=== PATIENT | female | born 1950 | race Caucasian/White ===

== ENCOUNTER 2024-12-28 22:28 | Emergency (ER) | payer MEDICARE ==
[~2024-12-28] VITALS: Ht 172.7 cm; Wt 82.0 kg
--- NOTE | 2024-12-28 22:38 | Physician Documentation ---
History of Present Illness ~ Stated Complaint: FALL Time Seen by MD: 22:32 HPI This is a pleasant 74-year-old female who presents for evaluation of potential injuries sustained in a mechanical ground level fall that was a result of alcohol consumption. She tripped up, fell. Struck her face/head and left shoulder. Complains of left shoulder pain. Denies any other symptoms. Denies loss of consciousness. Denies blood thinners. Denies any chest pain or difficulty breathing, denies abdominal pain. Medication Reconciliation Allergies: Uncoded Allergies: NKDA (Allergy, Unknown, 12/28/24) Review of Systems ROS 10 point review of systems was performed and unless noted above in HPI is negative for acute process/complaint. Physical Exam Physical Exam GENERAL: Awake, alert, oriented, GCS 15, no apparent distress, non-toxic appearing, answers questions, follows commands appropriately. Examined immediately upon arrival in the EMS gurney HEENT: Superficial abrasion to the left face just lateral to the White, no active bleeding, normocephalic, pupils equal, extraocular muscles intact, sclerae anicteric, mucus membranes moist, oropharynx is clear, no stridor. NECK: supple, full active range of motion, trachea midline, no thyromegaly, no lymphadenopathy, no JVD. CARDIOVASCULAR: regular rate/rhythm, no murmurs/gallops/rubs, Pulses are 2+ in all extremities and symmetric. Capillary refill less than 2 seconds. PULMONARY: Nonlabored, good air movement ,no respiratory distress, speaking in full sentences, clear to auscultation bilaterally, no wheezing, no ronchi, no rales, no accessory muscle use. GASTROINTESTINAL: Soft, non-tender, non-distended, normal active bowel sounds, no organomegaly, no pulsatile masses, no CVA tenderness. NEUROLOGIC: Lucid with normal mental status. Normal facial symmetry. Moves all extremities symmetrically and with purpose. No truncal ataxia. Speech is fluid without evidence of dysarthria or aphasia, no focal deficits appreciated. MUSCULOSKELETAL: There is full range of motion of all extremities. There is no joint pain or joint swelling or joint erythema. There is no muscle pain or tenderness or swelling. EXTREMITIES: warm, well-perfused, no cyanosis, no clubbing, no edema, no acute deformities. Skin: warm, dry, no rashes or lesions, no jaundice, no petechiae orpurpura. No ecchymosis. PSYCHIATRIC: Normal affect, normal insight, normal concentration. Focused exam: [Left shoulder is tender to palpation over humeral head and range of motion is limited by pain, neurovascularly intact distally.] This is concerning for proximal humerus fracture Progress Results/Orders Results/Orders Orders - SRINIVASAN DE LA ROSA DO Chest,Single View (12/28/24 ) Shoulder, Complete (Min 2 Vws) (12/28/24 22:32) Ct Head (12/28/24 22:20) Ct Cervical Spine (12/28/24 22:20) Completed Orders - SRINIVASAN DE LA ROSA DO Chest,Single View (12/28/24 ) Shoulder, Complete (Min 2 Vws) (12/28/24 22:32) Ct Head (12/28/24 22:20) Ct Cervical Spine (12/28/24 22:20) Vital Signs 12/28/24 22:42 Pulse 61 Resp 20 B/P (MAP) 108/66 Pulse Ox 99 Medical Decision Making Findings Facility Status: ED Holds, RME process The plan was discussed with the patient, who demonstrates clear understanding of the plan and is in agreement with the plan unless otherwise noted in the chart. All questions have been answered, all concerns were addressed unless otherwise documented. I was available throughout their ED stay for frequent reassessment and questions. Differential Diagnoses (considered and possible or likely): [Ground level fall, acute traumatic pain, closed head injury, concussion, subdural, subarachnoid, cervical spine fracture or subluxation, left shoulder contusio n/fracture/dislocation] ??Differential Diagnoses (considered and unlikely, not requiring evaluation currently): [Unlikely chest or abdominal injury] MDM Data Please see [facility] for the following: Independent Historians and external Records Review. Historian: [Patient] Independent Historians: ?[EMS] Medication Management: [Reviewed medication list] Social History and determinants: [Reviewed] Please see the body of the note for the following: Any independent interpretations of ECG, imaging studies. All vitals signs/haemodynamics, ordered tests were independently reviewed and interpreted by myself. Nursing triage complaint and vitals reviewed, additional nursing notes were reviewed as available and I agree unless otherwise noted or documented in contradiction in the chart Vital Signs: Independently reviewed Labs: Independently interpreted Imaging: Independently interpreted Old Medical Records: Independently reviewed, see HPI for relevant summary and information Pulse Oximetry: [98%] interpreted as [normal on room air] by me [Lawn Care Technician: [Regular Rate, Regular rhythm, no ectopy, NSR] reviewed and interpreted by me] Additionally notably showing: [Hemodynamically stable. CT head and neck is unremarkable for bleed or fracture. X-ray of the shoulder shows comminuted fracture of proximal humerus.] Tests considered but not ordered include: [Hematologic workup has been considered but does not appear to be necessary given mechanical nature of the injury.] Social Determinants of Health Impact: Patient was evaluated in [facility] [place] to healthcare due to below par ratio of patient to medical providers. [] Comorbid Conditions Impacting Present Evaluation and Care/Treatment: [Alcohol use disorder] Management Discussions with other Healthcare Providers: [None] Treatment and Disposition Medication Management (Given or considered): [Pain management has been considerably state of alcohol intoxication I would be leery of giving her narcotic medications at this time]. See EMR for details Consideration for Hospitalization/Escalation/Deescalation of Care: Admission for observation has been considered, [however the patient is able to tolerate p.o., their symptoms are controlled, they are able to rely on oral medications, and their chief complaint/diagnosis can be managed on outpatient basis.] ?ED Course:?[No clinical deterioration] ?Shared decision making:?[Patient is hemodynamically stable for discharge home with follow with their primary care provider. [ ] Specific and cautious return precautions provided and discussed with full understanding. Any incidental findings were also discussed and follow up recommendations given. [] All q uestions answered. Patient/family were able to verbalize back return precautions. Patient/family agree to plan. Copies of imaging and laboratory studies were provided.] Code status:?FULL Please see the full Electronic Medical Record for full details of nursing documentation, medications list, other records of complete past medical history and conditions, vital signs, laboratory studies, and any radiologic study interpretations by radiologists. Portions of this note were completed using J[employer] dictation software and as a result there may exist minor errors in spelling. I have reviewed elements of past family and social history and agree as included in note. Departure Disposition: HOME / SELF CARE / HOMELESS Impression: Primary Impression: Ground-level fall Additional Impressions: Acute traumatic pain Closed head injury Left shoulder pain Fracture of humerus, left, closed Condition: Improved Discharge Instructions: Humerus Fracture Treated With Immobilization Referrals: DILMA ROSAS Jr., MD 3-4 days Please follow-up with the orthopedic surgeon for a humerus fracture Education Educated: Patient Educated regarding: diagnosis, treatment, prognosis, need for follow up Signature Scribe Signature: No scribe Attestation: This note accurately reflects clinical decisions, work performed by myself, DO RJ Castillo NICHOLAS M DO December 28, 2024 22:38
--- NOTE | 2024-12-28 23:12 | RADIOLOGY REPORT ---
Clinical History fall, pain Comparison None Technique: Two radiographs were submitted for review. Without Contrast MELVIN ABDI, [id number] FINDINGS: Acute comminuted fracture of the Left humeral head/neck. There is associated soft tissue swelling. No radiopaque foreign body identified. IMPRESSION: Acute comminuted fracture of the Left humeral head/neck. Soft tissue swelling. This report was electronically signed by Jelani Nieves MD on 12/28/2024 11:09 PM.
--- NOTE | 2024-12-28 23:12 | RADIOLOGY REPORT ---
CHEST RADIOGRAPH Indication: fall, pain Technique: Single frontal view of the chest was obtained COMPARISON: None FINDINGS: Lines and Tubes: None Lungs: Clear Pleura: No effusion. No pneumothorax. Cardiomediastinal contours: Unremarkable IMPRESSION: No abnormality demonstrated.
--- NOTE | 2024-12-28 23:24 | RADIOLOGY REPORT ---
Clinical History fall with head strike, pain Comparison None Technique: Contiguous axial CT images of the head without intravenous contrast administration. Coron al and sagittal reformation was performed. All CT scans at this medical facility are performed using dose modulation techniques as appropriate t o a performed exam including the following: Automated exposure control was utilized; adjustment of th e mA and/or kV according to patient size; and use of iterative reconstruction technique. All CT studies are reported to the Dose Index Registry of the [employer]. Without Contrast Radiation Dose: CTDI (mGy): 61.52; DLP (mGy-cm): 1129.72 SEMAJMELVIN SILVERMAN, [id number] Findings: Multiple patchy to confluent hypoattenuated foci are in bilateral periventricular, deep, and subcorti lauren white matter. The remaining brain parenchyma shows otherwise normal fitzpatrick-white matter differenti ation without any mass, bleed, edema, or herniation. The sulci, cisterns, and ventricles are intact. No extra-axial fluid collection or skull lesion is present. The imaged portions of the paranasal sinuses and mastoid air cells are clear. Both orbits are grossl y normal. Impression: 1. No acute intracranial abnormality. 2. Bilateral white matter lesions probably represent chronic small vessel ischemic changes. This report was electronically signed by Calos Gayle MD on 12/28/2024 11:21:59 PM.
--- NOTE | 2024-12-28 23:26 | RADIOLOGY REPORT ---
Clinical History fall with head strike, pain Comparison None Technique: Contiguous axial CT images of the cervical spine without intravenous contrast administrati on. Coronal and sagittal reformation was performed. All CT scans at this medical facility are performed using dose modulation techniques as appropriate t o a performed exam including the following: Automated exposure control was utilized; adjustment of th e mA and/or kV according to patient size; and use of iterative reconstruction technique. All CT studies are reported to the Dose Index Registry of the [employer]. Without Contrast Radiation Dose: CTDI (mGy): 22.85; DLP (mGy-cm): 481.72 MELVIN ABDI, [id number] Findings: The cervical vertebrae show normal contour, height, and alignment. No fracture, dislocation, paraver tebral soft tissue mass, or bony destructive lesion is present. C2-C3: The disc space shows mild narrowing. The spinal canal is patent. Both neural foramina are pa tent. C3-C4: The disc space shows normal height. The spinal canal is patent. Both neural foramina are pat ent. C4-C5: The disc space shows normal height. The spinal canal is patent. The right neural foramen is patent. The left neural foramen is minimally narrowed. C5-C6: The disc space shows moderate narrowing. The spinal canal is patent. The right neural forame n is moderately narrow. The left neural foramen is patent. C6-C7: The disc space shows moderate narrowing. The spinal canal is patent. Both neural foramina ar e patent. C7-T1: The disc space shows mild narrowing. The spinal canal is patent. Both neural foramina are mi nimally narrowed. Impression: 1. No acute bony abnormality. 2. Cervical spine degenerative changes. This report was electronically signed by Calos Gayle MD on 12/28/2024 11:24:16 PM.
[2024-12-29] MEDS ORDERED: HYDR-3965 PO (00:45)
[2024-12-29 00:53] VITALS: BP 111/59; PULSE 66; RESP 18; TEMP 97.4; O2SAT 100
== END 2024-12-29 00:33 | disposition home or self-care (01) ==
LOC: ER 22:28
DX: S42.212A Unspecified displaced fracture of surgical neck of left humerus, initial encounter for closed fracture (principal); S09.90XA Unspecified injury of head, initial encounter; W01.0XXA Fall on same level from slipping, tripping and stumbling without subsequent striking against object, initial encounter; Y93.89 Activity, other specified; Y92.89 Other specified places as the place of occurrence of the external cause; Y99.8 Other external cause status
CPT/HCPCS: 70450; 71045; 72125; 73030; 99284; A4565

== ENCOUNTER 2025-01-04 16:17 | Emergency (ER) | payer MEDICARE ==
[~2025-01-04] VITALS: Ht 180.3 cm; Wt 92.6 kg
[~2025-01-04 16:17] MED LIST: HYDR-3965 PO
[2025-01-04 16:47] VITALS: BP 134/83; PULSE 99; O2SAT 95
[2025-01-04] MEDS ORDERED: IBUP-1985 PO (17:48)
--- NOTE | 2025-01-04 17:49 | Physician Documentation ---
History of Present Illness ~ Chief Complaint: See Chief Complaint Stated Complaint: RECHECK Time Seen by MD: 17:30 HPI 74-year-old female status post ground level fall left humerus fracture has an appointment with [facility] Dr. Elizondo in Wednesday. Patient is concerned that it has been almost a week and if it is okay for her to wait to see the orthopedist as well as potentially better pain management prior to seen orthopedics. Patient is having to sleep in her chair due to the immobility of her left upper extremity. Family member at bedside Tetanus within 5 years: Yes Medication Reconciliation Allergies: Uncoded Allergies: NKDA (Allergy, Unknown, 12/28/24) Scheduled PRN Hydrocodone Bit/Acetaminophen 5/325 MG (Tyler 5/325 MG), 1 TAB PO Q6H PRN for pain Physical Exam Vital Signs: Temperature: 98.2, Heart Rate: 99, Respiratory Rate: 17, BP: 134/83, Pulse Oximetry: 95, Weight: 92.600 Oxygen Flow Rate: 0 Progress Results/Orders Results/Orders Vital Signs 01/04/25 16:47 Temp 98.2 Pulse 99 Resp 17 B/P (MAP) 134/83 Pulse Ox 95 O2 Flow Rate 0 Departure Time of Disposition: 17:45 Disposition: 01 HOME / SELF CARE / HOMELESS Impression: Primary Impression: Fracture of humerus, left, closed Condition: Stable Discharge Instructions: Managing Pain Without Opioids Referrals: NO PRIMARY CARE PROVIDER (PCP) Prescriptions Ibuprofen (Ibuprofen) 600 Mg Tablet 1 TAB PO Q8H for pain for 10 Days, #30 TAB 0 Refills with food Prov: DEANNE AUSTIN NP 01/04/25 Education Educated: Patient, Family Educated regarding: diagnosis, treatment, need for follow up Additional Comment Maintain follow-up with orthopedics on Wednesday. DEANNE AUSTIN NP January 04, 2025 17:49
[2025-01-04 18:18] VITALS: RESP 16
[2025-01-04] MEDS: HYDROcodone/acetaminophen 5mg/325mg tablet PO ONE (18:18)
[2025-01-04 18:21] VITALS: TEMP 98.2
== END 2025-01-04 18:25 | disposition home or self-care (01) ==
LOC: ER 16:17
DX: S42.302A Unspecified fracture of shaft of humerus, left arm, initial encounter for closed fracture (principal); W19.XXXA Unspecified fall, initial encounter; Y93.89 Activity, other specified; Y92.89 Other specified places as the place of occurrence of the external cause; Y99.8 Other external cause status
CPT/HCPCS: 99283

== ENCOUNTER 2025-01-24 14:21 | Outpatient (CLI) | payer MEDICARE ==
[~2025-01-24 14:21] MED LIST changes: +IBUP-1985 PO
--- NOTE | 2025-01-24 15:52 | RADIOLOGY REPORT ---
EXAM: CT CT UPPER EXTREMITIES INDICATION: PAIN IN LEFT UPPER ARM TECHNIQUE: Axial images of left shoulder have been obtained along with coronal and sagittal reformatt ed images. All CT scans at this facility use dose modulation, iterative reconstruction, and/or weight based dosing when appropriate to reduce radiation dose to as low as reasonably achievable. COMPARISON: None FINDINGS: BONES: Significant comminuted, 1 shaft width medially displaced left proximal humeral diaphyseal frac ture. Additional fracture plane extending through the anatomic neck and humeral head. Fracture exte nsion into the greater tuberosity. No fracture extension into the lesser tuberosity. Multiple small b utterfly fragments. Subacute to chronic fractures of the left lateral 3rd, 4th ribs with possible mor e acute fracture of the left lateral 5th rib MUSCLES: No abnormal attenuation. JOINT SPACES: No joint effusion. TENDONS/LIGAMENTS: Intact. OTHER: Moderate to severe left centrilobular emphysema. Coronary artery calcifications. Prominence of the main pulmonary artery, which may indicate pulmonary hypertension. IMPRESSION: 1. Significant comminuted, 1 shaft width medially displaced left proximal humeral diaphyseal fracture .
== END 2025-01-24 23:59 | disposition home or self-care (01) ==
LOC: RAD 14:21
PROVIDERS: ATTEND Specialist
DX: S42.292A Other displaced fracture of upper end of left humerus, initial encounter for closed fracture (principal); M79.622 Pain in left upper arm; J43.2 Centrilobular emphysema; M97.32XA Periprosthetic fracture around internal prosthetic left shoulder joint, initial encounter; I27.20 Pulmonary hypertension, unspecified; I25.10 Atherosclerotic heart disease of native coronary artery without angina pectoris; X58.XXXA Exposure to other specified factors, initial encounter; Y93.89 Activity, other specified; Y92.89 Other specified places as the place of occurrence of the external cause; Y99.9 Unspecified external cause status; Y99.8 Other external cause status
CPT/HCPCS: 73200; 76377

== ENCOUNTER 2025-03-02 10:42 | Observation (INO) | payer MEDICARE ==
[2025-02-26 15:19] LABS: MEAN PLATELET VOLUME 8.7 FL (7.4-10.4); PRE OP HEMATOCRIT 45.9 % (35.0-45.0); PRE OP HEMOGLOBIN 15.8 g/dL (12.0-16.0); PRE OP PLATELET COUNT 146 X10'3 (140-440); PRE OP WHITE BLOOD COUNT 6.2 10'3 (4.8-10.8); RED CELL DISTRIBUTION WIDTH 17.9 % (11.5-14.5)
[2025-02-26 15:20] LABS: LEUKOCYTE ESTERASE ,URINE SMALL (Neg); NITRITES, URINE POSITIVE (Neg); OCCULT BLOOD,URINE TRACE-INTACT (Neg)
[2025-02-26 15:22] LABS: UA COLLECTION TYPE CLN CATCH MIDSTREAM
[2025-02-26 15:25] LABS: SQUAMOUS EPITHELIAL CELL,UR MODERATE /LPF (FEW)
[2025-02-26 15:27] LABS: WBC CLUMPS,URINE FEW /HPF (NEGATIVE)
[2025-02-26 15:36] LABS: CREATININE 0.89 MG/DL (0.40-0.90); PRE OP ALT 28 U/L (30-65); PRE OP ANION GAP 7 (8-16); PRE OP AST 23 U/L (10-37); PRE OP BILIRUB, TOTAL 0.6 MG/DL (0.0-1.0); PRE OP GLUCOSE 145 MG/DL (70-104); PRE OP POTASSIUM 4.6 MMOL/L (3.4-5.1); PRE OP SODIUM 138 MMOL/L (135-145); TOTAL CARBON DIOXIDE 29.4 MMOL/L (24-32); eGFR 62 ML/MIN
--- NOTE | 2025-02-26 15:46 | RADIOLOGY REPORT ---
DI CHEST,TWO VIEWS CLINICAL HISTORY: PREOP COMPARISON: None TECHNIQUE: Frontal and lateral view of the chest was obtained FINDINGS: Lines and Tubes: None Lungs: Right medial lower lung zone opacity. There is Image rotation into the left. Pleura: No effusion. No pneumothorax. Cardiomediastinal contours: Unremarkable Bones: Mild loss of vertebral body height of the lower thoracic spine upper lung chronicity. IMPRESSION: Right medial lower lung zone opacity which may represent pneumonia/ atelectasis. Recommend clinical c orrelation
[~2025-03-02] VITALS: Ht 180.3 cm; Wt 91.0 kg
[2025-03-02] VITALS (20 sets, daily range): BP systolic 98–152; BP diastolic 58–108; PULSE 63–99; RESP 12–22; TEMP 97.2–98.6; O2SAT 76–100
[2025-03-02] MEDS: ceFAZolin 2gm/dext,iso 50mL 50 ML IV ONE (05:30)
[~2025-03-02 10:42] MED LIST changes: +ALBU18HF2 INH; +ASCO-134 PO; +BUDE10.7 INH; -HYDR-3965 PO; +MULT-1085 PO; +OXYM15SP NAS
[2025-03-02] MEDS ORDERED: vancomycin 1,000mg inj ONE (10:51)
[2025-03-02] MEDS: ringers solution, lacted 1,000 ML IV SCH ×2 (12:00→13:00)
[2025-03-02] MEDS ORDERED: cloNIDine hcl/PF 100mcg/ml inj ONE (12:36)
[2025-03-02] MEDS ORDERED: fentaNYL/PF 50MCG/1 ML 2ML syringe ONE ×2 (12:37→13:48)
[2025-03-02] MEDS ORDERED: midazolam 1 mg/ML 2ml injection ONE (12:38)
[2025-03-02] MEDS ORDERED: propofol inj 20 ML IV ONE (12:39)
[2025-03-02] MEDS ORDERED: ROPIVAcaine 0.5% (5mg/ml) 30ml vial ONE (12:41)
[2025-03-02] MEDS ORDERED: dexamethasone sod phosphate 4mg/ml inj. ONE (12:41)
[2025-03-02] MEDS ORDERED: acetaminophen 1,000mg/100ml IV 100 ML IV PRN (13:00)
[2025-03-02] MEDS ORDERED: PCA WASTE DOCUMENTATION 1 MG ML MC SCH (13:00)
[2025-03-02] MEDS ORDERED: morphine 4 MG/ML inj SYRINge IV PRN (13:00)
[2025-03-02] MEDS ORDERED: labetalol 20mg/4ml (5mg/ml) syringe IV PRN (13:00)
[2025-03-02] MEDS ORDERED: hydrALAZINE 20mg/ml inj. IV PRN (13:00)
[2025-03-02] MEDS ORDERED: bisacodyl 10mg suppository rectal RC PRN (13:00)
[2025-03-02] MEDS ORDERED: HYDROmorphone/PF 0.2 MG/ML SYRINGE IV PRN ×2 (13:00)
[2025-03-02] MEDS ORDERED: magnesium hydroxide 30ml (MOM) UD suspension PO PRN (13:00)
[2025-03-02] MEDS ORDERED: ondansetron/PF 4mg/2ml inj IV PRN ×2 (13:00)
[2025-03-02] MEDS ORDERED: HYDROcodone/acetaminophen 5mg/325mg tablet PO PRN ×2 (13:00)
[2025-03-02] MEDS ORDERED: rocuronium 10mg/ml inj IV ONE (13:09)
[2025-03-02] MEDS ORDERED: albuterol 2.5 MG/3 ML nebule NEB PRN (13:25)
[2025-03-02] MEDS ORDERED: tranexamic acid 100mg/ml inj. ONE (13:48)
--- NOTE | 2025-03-02 19:43 | OPERATIVE REPORT ---
Operative Report Providers to ~ Date of Procedure: Mar 02, 2025 Pre-Operative Diagnosis: L proximal humerus fracture Post-Operative Diagnosis SAME as PRE-Op Procedure Performed Left shoulder hemiarthroplasty for proximal humerus fracture and biceps tenodesis Surgeon: Bryce Hummel MD Ancient Art Curator None Anesthesiologist: Adarsh Price Type of Anesthesia: General, Regional Findings: Significant osteoporosis of the left proximal humerus. Soft bone of the humeral head.. Comminution of the metadiaphysis. No early healing callus noted. Estefania re osteoporosis/osteopenia of the glenoid that resulted in implant failure of the reverse shoulder base plate. This resulted in the need to change to a hemiarthroplasty due to weak glenoid bone. Complications Failure of the glenoid component intraoperatively Prosthetics\Implants used: Biomet comprehensive size 10 stem with a 46 diameter humeral head Estimated Blood Loss: 250 cc Specimen Removed: None Description of Procedure: Patient is brought to the operating. Placed in a supine position. Preoperative antibiotics of 2 g of Ancef were given. 1 g of TXA. General plus regional anesthesia was performed. Patient was then positioned in a modified beach chair position. Bony prominences were well padded. Bilateral lower extremity SCDs were placed. The left upper extremity was prepped and draped in the usual sterile fashion. A time-out procedure was performed as per routine identifying the patient, site to be operated on, and procedure to be performed. I confirmed that we are operating on the left side. Patient received 2 g of Ancef. 1 g of TXA. A left shoulder interscalene block had been performed. I began with the left shoulder deltopectoral extended incision. Cephalic vein was identified and taken laterally with the deltoid. I developed the deltopectoral interval and subdeltoid space. There was scar tissue within the subdeltoid space given the subacute nature of the fracture. I developed the subacromial space and a retractor was placed. I could palpate the lateral aspect of the proximal fracture and a retractor was placed directly on bone there. I could identify the pectoralis major insertion and found the long head of the biceps. The long head of the biceps had significant tenosynovitis so I tenodesed it to the upper portion of the pectoralis major and resected the proximal portion of the biceps all the way up to the rotator interval. I spent some time dissecting out the metadiaphyseal portion of the fracture which showed significant comminution without sign of healing. I also was able to dissect out the shaft of the humerus which was displaced medially and posteriorly to the proximal humeral segment. There was no comminution of the humeral shaft portion so I dissected the upper portion. I had to release a small portion of the upper part of the pectoralis major. There was tendinous tissue within the shaft of the humerus on the distal side. This may have been portions of the latissimus or teres major but I had to debride the tendon out of the humeral shaft. I then turned my attention to the proximal segment. I carefully dissected around the proximal humerus. There was extensive comminution. Again minimal healing. I tried to mobilize the humeral head towards the shaft but the comminution started to displace. Also, given the timing, the amount of shortening was substantial and any effort to try and gain length caused the fracture fragments to displaced more. I also used this opportunity to palpate from within the humeral canal the bone quality of the humeral head and it was very poor. Very soft bone. At this point, I had to make a decision whether to proceed with attempted open reduction internal fixation in this patient or consider converting her to a reverse shoulder replacement. Given her age, overall health, bone quality, smoking history, etc., I felt it might be better to do a reverse shoulder arthroplasty because I think healing of the fracture would be very limited in this patient. Patient was aware of this especially given timing of the surgery. Therefore, at this point I decided to convert to a reverse shoulder replacement. I used an osteotome to essentially cleaved off the lesser tuberosity. I then used the same osteotome to go within the fracture site and mobilize the greater tuberosity which essentially came apart by itself. I used an oscillating saw to remove the remaining portion of the humeral head as there was still a reasonable amount of metaphyseal bone. Humeral head was placed on the back table. It roughly size close to a size 46. I then placed traction sutures around the lesser tuberosity osteotomy as well as around the large fracture fragment of the greater tuberosity. With these sutures in place, I could use them for retraction. This allowed me access to the glenoid. Also, there was a large medial calcar piece which came off of the humeral head. I took a #5 FiberWire suture and a subperiosteal fashion, I passed the #5 FiberWire around the medial calcar to try and use it as a cerclage suture at a later point. The traction sutures around the tuberosities were 1.3 mm SutureTape. I did use a combination of reamers as well as curettes to clear out the humeral canal. So at this point, I was ready to try and place a glenosphere component for the reverse shoulder replacement. Visualization of the glenoid was easy because there was no proximal humerus. Careful dissection allowed removal of residual biceps and labrum. I easily dissected directly on bone and placed retractors on bone to have excellent visualization of the glenoid. Care was taken inferiorly to protect the axillary nerve and anteriorly to protect neurovascular structures. I had good visualization. I then cleared off any residual cartilage from the glenoid. I decided I would use a 5 degree augmented base plate to tip of the glenoid down slightly. I positioned my base plate guide for the shoulder innovations implant and placed a bicortical guide pin. Fluoroscopy was taken and I was happy with the guide pin position. I then reamed the glenoid face to accommodate the 5 degree augment. Definitive 5 degree augment was open and I placed the maximum correction superiorly just like my reaming. I then impacted the base plate. Upon impaction, it was noted that the glenoid face did not hold and the subchondral bone failed especially inferiorly. The base plate settled a little deep into the pocket. I did notice this. It did not have very good Press-Fit. I decided to try and placed my center compression screw to see if this added stability. I placed a bicortical center compression screw and it actually had fairly good purchase. I decided to continue with the surgery to see what would happen and if I could achieve stability of the base plate. I placed four peripheral locking screws. The base plate seemed to be very stable. Even with twisting of the final screw tightening, the base plate seemed to turn the scapula as a unit. I then decided to place a 36 diameter glenosphere. A 36, plus three glenosphere was opened. I then impacted the Lakhani taper of the glenosphere to seat the glenosphere. I then gave a twist to the glenosphere to see if the taper was engaged. While the taper was engaged, I could clearly see the entire glenosphere twist. This to me indicated that the base plate was not secure. I removed the glenosphere. I checked the base plate and it was grossly loose. I could see it rotate several mm with a twisting force. I backed out all of my screws and I could essentially pull out the base plate with minimal effort. Inspection of the bone under the base plate showed obvious subchondral bone failure. At this point, it was clear that a reverse shoulder arthroplasty could not be performed because I would not have any solid bone purchase of the glenoid base plate and glenosphere. I decided I would have to convert to a hemiarthroplasty. I took bone from the humeral head. I impacted it into the glenoid bone to try an act as a bone filler given the collapse of the subchondral plate. At this point, we decided to try and proceed with a hemiarthroplasty I decided to use the Biomet comprehensive stem.. I placed a size 14 stem into the humeral canal. I selected a size 14 because it got enough interference fit and had a bout the right amount of stem sitting proximally that I felt I could adequately cerclage the significant amount of bone for the greater and lesser tuberosities. I selected a 46 diameter head. I believe it was 17 or 18 mm thick. I set the offset so I would have the maximum offset posterior superiorly. I then placed a trial head in this position. I then reduced the shoulder and tried to close the tuberosities around the stem. I was actually fairly happy with the position of the humeral head, size of the humeral head, and position of the tuberosities at least based off of this provisional reduction. I decided this would be a reasonable construct for this patient. Especially given the glenoid component failure. I dislocated the shoulder. I measured the amount of stem proximal to the fracture of the humeral shaft. I then selected a size 10 stem that would give me a 2 mm cement mantle around the distal portion of the stem. I placed a cement restrictor into the humeral canal to the appropriate depth after thorough irrigation of it with IrriSept. Definitive implant was opened on the back table which were again was a size 10 Biomet comprehensive humeral stem and a 46 diameter humeral head with the maximum offset at the posterior superior position. Before placing the definitive implant, I placed all of my sutures around the tuberosities for later closure tuberosity osteosynthesis. Two sutures were placed through the bone-tendon junction of the lesser tuberosity. Those sutures were then passed through the deep portion of the greater tuberosity. I also placed two sutures just around the greater tuberosity. I placed two sutures through the humeral canal for vertical suture repairs. All of the sutures were 1.3 mm SutureTape. Cement was mixed on the back table. It was then retrograde filled into the humeral canal. The humeral stem and humeral head which had been assembled on the back table by engaging the taper, was then placed in approximately 20 of retroversion and set into the humeral canal at the predetermined height. Excess cement was removed. I waited until the cement was cured. Once this occurred, I made sure to pass my greater tuberosity cerclage sutures around the medial aspect of the stem. I made sure that my greater to lesser tuberosity cerclage sutures would pass under the humeral head. I reduced the shoulder. I then reduced the greater tuberosity and checked its position under fluoroscopy. I then tied by two greater tuberosity sutures. I felt the reduction was reasonable. I then tied my greater to the lesser tuberosity sutures and this secured my lesser tuberosity in a near anatomic position adjacent to the greater tuberosity. Again fluoroscopy showed reasonable position however it was noted that tightening all of those cerclage sutures did result in some distalization of my greater tuberosity compared to my pre suturing fluoroscopy images. There was a relatively large medial calcar piece that had slight displacement towards the shaft but I could not correct it even though I tried to adjust it. I did tie in the medial calcar piece with 5. FiberWire in a cerclage fashion. Please note that all of my cerclage sutures were placed in a subperiosteal fashion. At this point, I had completed my cerclage fixation. Although it was reasonable, concern I did feel the greater tuberosity was displaced slightly but again at this point, I could not correct it. Final fluoroscopy images were taken and saved. I did an axillary nerve tug test and it was intact. I did repair my vertical sutures from the shaft to the tuberosities. I did close the rotator interval with FiberWire suture. Again I did check the axillary nerve and it was palpable and intact with regards to a tug test. I then irrigated the shoulder with one bottle of IrriSept and 3 L of pulse lavage irrigation. 1 g of vancomycin powder was placed adjacent to the implant. The deltopectoral interval was closed with FiberWire suture. Deep layers were closed with 0 Vicryl suture, subcutaneous layers were closed with 2-0 Vicryl suture and skin was closed with juliana. Final sponge and needle counts were correct. Sterile dressings were applied and arm was protected in an abduction pillow and sling. Patient was thereafter recovered without complications and sent to recovery in good condition. The above dictation should support the fact that this was a complicated case. This fracture was over [id number] at the time of surgery. The patient's bone quality was a significant complicating issue that required increased time, skill, and effort to try and accomplish surgery. Having to change the plan intraoperatively from one type of shoulder replacement to another also added time and complexity. Counts repoted as correct: Yes X-Ray findings: No Foreign body BRYCE HUMMEL MD Mar 02, 2025 19:43
[2025-03-02] MEDS: FORMOTEROL IH SCH (20:00)
[2025-03-02] MEDS: GLYCOPYR IH SCH (20:00)
[2025-03-02] MEDS: potassium cl 20mEq in 1/2 NS 1,000 ML IV SCH (20:00)
[2025-03-02] MEDS: BUDESONIDE IH SCH (20:00)
--- NOTE | 2025-03-02 21:04 | RADIOLOGY REPORT ---
CLINICAL INDICATION: post op TECHNIQUE: 4 radiographic views of the left shoulder were obtained. Comparison: DI SHOULDER, COMPLETE (MIN 2 VWS) on DOS: 12/28/24 FINDINGS/IMPRESSION: There is acute comminuted proximal humerus fracture status post total shoulder replacement. The hardw are is intact. Soft tissue edema with subcutaneous emphysema about the shoulder with overlying skin s taples consistent with recent surgery. The visualized lungs are clear.
[2025-03-02] MEDS: ceFAZolin 2gm/dext,iso 50mL 50 ML IV SCH (21:48)
[2025-03-03 01:49] VITALS: O2SAT 93
[2025-03-03 03:50] VITALS: BP 106/74; PULSE 70; RESP 16; TEMP 97.6; O2SAT 91
[2025-03-03 05:46] LABS: MEAN PLATELET VOLUME 8.8 FL (7.4-10.4); RED CELL DISTRIBUTION WIDTH 17.9 % (11.5-14.5)
[2025-03-03 05:58] LABS: TOTAL CARBON DIOXIDE 24.8 MMOL/L (24-32)
[2025-03-03 06:00] VITALS: BP 95/59; PULSE 67; RESP 14; TEMP 97.2; O2SAT 94
--- NOTE | 2025-03-03 08:13 | PROGRESS NOTE ---
Progress Note Orthopedic Ortho Post Op Day #: 1 Follow Up Progress Note Postoperative day 1. Status post left shoulder hemiarthroplasty and biceps tenodesis Central Line/PICC still needed: N\A Da Silva Catheter still needed?: N\A Subjective Patient states she really does not have much pain. Her shoulder actually feels better now than before surgery. She reports no events from her standpoint overnight. Objective Vital Signs Date Time Temp Pulse Resp B/P (MAP) Pulse Ox O2 Delivery O2 Flow Rate FiO2 03/03/25 06:00 97.2 67 14 95/59 (71) 94 Nasal Cannula 2.0 03/03/25 01:50 93 Result Diagram: 03/03/2542603/03/25426 Alert and Oreinted x4, Appropriate, Vital signs are stable, In no acute distress Objective Examination of the left shoulder shows dressings intact. They were reinforced. Patient states she does have sensation in the axillary nerve distribution. 2+ and palpable radial pulse. Her median, radial, and ulnar nerve motor functions appeared to be intact. She says that she can feel all of her fingers in the hand but it still feels different than the right hand. Sling is in place. Lab Results comments Postoperative labs have been reviewed. Labs were within acceptable limits except for potassium was slightly high at 5.5. IV fluids that contain potassium were stopped. Labs will be rechecked. Other Results Postoperative x-rays were reviewed. She has a cemented hemiarthroplasty in place. There is a fracture through the metadiaphyseal region which is part of her original injury. The hemiarthroplasty appears reasonably placed. There was a slight over reduction of the greater tuberosity but it is in a reasonable position. Overall humeral head alignment looks reasonable. No sign of dislocation. No foreign bodies Problem/Assessment/Plan Assessment\Plan: Doing Well, Anticipate disch to home Postoperative day 1. Status post left shoulder hemiarthroplasty Plan: Patient is doing reasonably well. Recovering as expected. Her pain is controlled. Her vital signs were stable. For the most part, her labs were acceptable, we will recheck her potassium. Postoperative x-rays look good. She has been seen by Physical therapy. She still needs to be taught pendulum exercises. Assuming her labs look better and she clears physical therapy, she should be able to be discharged home later today with the following instructions: 1. Left shoulder sling at all times 2. No active left shoulder motion. She is allowed pendulums and passive motion only. No shoulder external rotation past neutral 3. Strict nonweightbearing left upper extremity 4. In two days, she can remove her dressing. She should change the dressing daily thereafter until the wound is dry. She should not get the wound wet 5. Patient should resume her normal medications 6. Patient should start aspirin 325 mg one tablet daily for four weeks as DVT prophylaxis unless contraindicated for her. 7. Patient should have a follow up with me in two weeks. Patient and her sister have my cell phone number should there be any concerns. COLTON HUMMEL MD Mar 03, 2025 08:13
[2025-03-03] MEDS: oxymetazoline 15 ML nasal spray NS SCH (09:18)
[2025-03-03 10:00] VITALS: BP 102/50; PULSE 80; RESP 16; TEMP 96.7; O2SAT 96
--- NOTE | 2025-03-03 12:35 | DISCHARGE SUMMARY ---
Discharge Summary Providers to CC ~ Discharge Summary Admission Diagnosis: L proximal humerus fracture Hospital Course DATE OF ADMISSION: 03/02/2025 DATE OF DISCHARGE: 03/03/2025 Discharge Diagnosis\Comment: Subacute left proximal humerus fracture. Pronounced glenoid osteopenia/osteoporosis Operations\Procedures: On 03/02/2025, patient underwent a left shoulder hemiarthroplasty and biceps tenodesis. This was a conversion from the plan to do a reverse shoulder arthroplasty. Intraoperative decision making had to be made to change the plan to a hemiarthroplasty due to pronounced glenoid osteopenia/osteoporosis that prevented solid implantation of a glenoid component. Consultants: None Complications: Failure of the glenoid base plate to have solid fixation due to poor bone quality. Intraoperative plan was changed to a hemiarthroplasty. Condition on DC: Stable Discharge Summary: Patient underwent surgery as mentioned above on 03/02/2025. Surgery proceeded however there was an intraop complication and that her glenoid base plate immediately failed. Her bone quality was very poor such that the base plate immediately loosened despite locking screw fixation. Surgery plan was altered to do a hemiarthroplasty instead. Surgery was accomplished and patient was sent to recovery. Patient underwent routine postoperative care. She initially had pain control with an interscalene block and subsequently transitioned to oral medications. She finished a total of 24 hours of IV antibiotics. She was seen and cleared by Physical therapy for safe discharge. Pendulums and passive range of motion were ordered. Strict nonweightbearing. Continue use of the sling. She has been instructed to restart her normal medications including DVT prophylaxis with aspirin. Patient did have a elevated potassium on her morning labs which subsequently corrected with discontinuation of IV fluids. Vital signs were stable. Patient was deemed stable for discharge on 03/03/2025. Discharge instructions are on the front of the patient's chart. I reviewed those instructions with her this morning. Discharge instructions are also noted in my progress note. *Problems/Diagnosis: (1) Osteoporosis Status: Chronic (2) Fracture of humerus, left, closed Status: Resolved (3) Left shoulder pain Status: Acute Total Time Spent on D/C: Up to 30 Minutes Counseling Services Smoking & Tobacco Cessation: 3-10 Minutes Problem Qualifiers (1) Fracture of humerus, left, closed: Qualified Codes: S42.222S - 2-part displaced fracture of surgical neck of left humerus, sequela (2) Left shoulder pain: Qualified Codes: M25.512 - Pain in left shoulder COLTON HUMMEL MD Mar 03, 2025 08:15
== END 2025-03-03 14:30 | disposition home or self-care (01) ==
LOC: PAS 10:42 → PAS IN 13:08 → ORTHO 4S 19:19
PROVIDERS: ADMIT Specialist; ATTEND Specialist
DX: S42.292A Other displaced fracture of upper end of left humerus, initial encounter for closed fracture (principal); S42.222A 2-part displaced fracture of surgical neck of left humerus, initial encounter for closed fracture; R53.1 Weakness; Z87.891 Personal history of nicotine dependence; Z79.899 Other long term (current) drug therapy; Z98.890 Other specified postprocedural states; X58.XXXA Exposure to other specified factors, initial encounter; Y93.89 Activity, other specified; Y92.89 Other specified places as the place of occurrence of the external cause; Y99.8 Other external cause status
CPT/HCPCS: 23470; 29828; 71046; 73030; 80051; 80053; 81001; 82948; 84132; 86885; 86900; 86901; 87077; 87186; 96365; 96366; 97161; A4215; A4565; A4615; A4618; A7000; C1776; G0378; J0690; J3480; J3490; J7120; 36415; 85025; 87081; 87088; 97110; 97530; A6253; A6449; A6455; C1713; J0735; J1100; J2250; J2704; J2795; J3010; J3373

== ENCOUNTER 2025-03-03 20:31 | Emergency (ER) | payer MEDICARE ==
[~2025-03-03] VITALS: Ht 180.3 cm; Wt 90.9 kg
[2025-03-03 20:35] VITALS: PULSE 95
--- NOTE | 2025-03-03 21:38 | Physician Documentation ---
History of Present Illness ~ Chief Complaint: Post-operative complication Stated Complaint: POST OP COMPLICATION Time Seen by MD: 21:38 HPI 74-year-old female who presents with bleeding from postoperative wound She tells me that she had a left shoulder replacement surgery yesterday. Today she noticed that there was blood seeping through the bandages. She tried to contact her doctor, but it was after hours and she could not get through. She denies any significant worsening pain, lightheadedness, or other associated symptoms. She has some residual numbness in her left hand after the nerve block, but denies any new numbness, weakness or other changes to the left hand. No new injury to the arm. No other acute concerns. Tetanus within 5 years: Yes Medication Reconciliation Allergies: Uncoded Allergies: NKDA (Allergy, Unknown, 12/28/24) HAYFEVER (Adverse Reaction, Intermediate, RUNNY NOSE AND SNEEZING, 03/01/25) Scheduled Ascorbic Acid (Ascorbic Acid), 1 TAB PO DAILY, (Reported) Budesonide/Glycopyr/Formoterol (Breztri Aerosphere Inhaler), 2 PUFFS INH BID, (Reported) Ibuprofen (Ibuprofen), 1 TAB PO BID, (Reported) Multivitamin (Multi Vitamin Daily), 1 TAB PO DAILY, (Reported) Oxymetazoline HCl (Dristan), 3 SPRAYS SHAN DAILY, (Reported) Scheduled PRN Albuterol Sulfate (Ventolin Hfa), 2 PUFFS INH Q4H PRN for SOB or wheezing, (Reported) Discontinued Medications Ibuprofen (Ibuprofen), 1 TAB PO Q8H Discontinued Reason: patient no longer taking [Dristan], (Reported) Discontinued Reason: Prescription changed [Mvi], (Reported) Discontinued Reason: Prescription changed [Vitamin C], (Reported) Discontinued Reason: Prescription changed Past Medical History Past Medical History: *MUSCULOSKELETAL* Review of Systems Constitutional: Denies: fever Musculoskeletal: Reports: joint pain Physical Exam Vital Signs: Heart Rate: 95, Respiratory Rate: 15, BP: 111/68, Pulse Oximetry: 93, Weight: 90.910 Oxygen Flow Rate: 0 Physical Exam General: This is a pleasant older woman who is sitting in bed with a sling and postoperative bandages over her left arm, family at bedside Heart: Regular rate and rhythm, normal-appearing peripheral perfusion including normal perfusion to the left hand and normal capillary refill to the fingers of the left hand Lungs: normal work of breathing, normal oxygen saturation on room air Extremities: Left upper extremity: With the sling and bandages removed, the patient has a postoperative wound over the anterior upper arm, with no active bleeding or evidence of dehiscence. There is blood-soaked gauze and bandages. No significant surrounding erythema or evidence of infection or other complication. Neuro: Alert and oriented Psychiatric: Calm and cooperative with exam Progress Results/Orders Results/Orders Vital Signs 03/03/25 03/03/25 20:35 22:46 Pulse 95 Resp 15 16 B/P (MAP) 111/68 105/80 Pulse Ox 93 98 O2 Flow Rate 0 Medical Decision Making Additional Comment The patient presents with bleeding from a postoperative wound. On exam, there was no active bleeding, but there are signs of previous bleeding. The wound a ppears appropriate for 1 day postop, no evidence of dehiscence. The area around the wound was cleaned and Re bandaged with clean bandages. She was placed back in the sling and splint. She was discharged with ongoing home care instructions and she will contact her orthopedic clinic on Wednesday to arrange follow up for re-evaluation. She will return here if she has worsening bleeding or other symptoms. Departure Time of Disposition: 22:31 Disposition: HOME / SELF CARE / HOMELESS Impression: Primary Impression: Postoperative bleeding from incision Condition: Improved Referrals: NO PRIMARY CARE PROVIDER (PCP) Education Educated: Patient, Family Educated regarding: diagnosis, treatment, need for follow up Signature Scribe Signature: na Attestation: SABINA Guthrie MD Mar 03, 2025 21:38
[2025-03-03 22:46] VITALS: BP 105/80; RESP 16; O2SAT 98
== END 2025-03-03 22:48 | disposition home or self-care (01) ==
LOC: ER 20:32
DX: L76.22 Postprocedural hemorrhage of skin and subcutaneous tissue following other procedure (principal); R20.0 Anesthesia of skin
CPT/HCPCS: 99282; A6253; A6402; 99281; A6449